=== PATIENT | male | born 1990 | race Caucasian/White ===

== ENCOUNTER 2017-02-12 12:26 | Emergency (ER) | payer MEDICAID ==
[2017-02-12 12:34] VITALS: BP 118/90; PULSE 104; RESP 16; TEMP 98.4; O2SAT 98
== END 2017-02-12 13:21 | disposition left against medical advice (07) ==
DX: Z53.21 Procedure and treatment not carried out due to patient leaving prior to being seen by health care provider (principal)

== ENCOUNTER 2017-07-20 18:56 | Emergency (ER) | payer MEDICAID ==
[2017-07-20 19:31] VITALS: O2SAT 96
[2017-07-20] MEDS ORDERED: FLUORESCEIN SODIUM 1 MG STRIP OP ONE ×2 (19:52→19:53)
[2017-07-20] MEDS ORDERED: PROPARACAINE 0.5% 15 ML OPHT DROP ONE (19:52)
[2017-07-20] MEDS ORDERED: PROPARACAINE 0.5% 15 ML OPHT DROP LEFTEYE ONE (19:53)
[2017-07-20] MEDS ORDERED: GENTAMICIN 0.3% DROPS PREPACK OPHT.BTL TAKEHOME ONE (20:11)
--- NOTE | 2017-07-20 20:11 | EDPHY ---
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 It gradually began to tear in become mildly reddened. He denies any visual changes/photophobia/ocular discharge. Patient does not wear contact lenses. Modifying Factors: None Comment: ROS: see HPI Constitutional: No fever, no chills, no weight loss Eyes: No blurred vision Respiratory: No shortness of breath, no cough Cardiovascular: No chest pain, no palpitations Gastrointestinal: No nausea, no vomiting, no diarrhea, no hematemesis, no blood in stool Genitourinary: No dysuria, no blood in urine Extremities: No myalgias, no edema Neurologic: No weakness, no numbness Skin: No rashes, no petechiae Hematologic: No bruising, no bleeding MEDICAL/SURGICAL/SOCIAL HISTORY: Medical history: Depression, methamphetamine use. Surgical history: Denies Social history: Unemployed General: Untidy, adult white male, nontoxic in appearance, awake and alert, distress Visual Acuity: noted from Nurse's notes. Pupils: equal round and reactive to light. EOMI. Lids: no edema or swelling Skin: no proptosis, no periorbital erythema or swelling, no vesicles Conjunctivae: not injected, no discharge Cornea: exam with fluorescein shows 6 o'clock uptake consistent with abrasion Anterior chamber: normal, no hyphema or hypopyon Source: Patient Exam Limitations: No limitations - Personal History Current Tetanus/Diphtheria Vaccine: Yes Current Tetanus Diphtheria and Acellular Pertussis (TDAP): Yes - Medical/Surgical History Hx Asthma: No Hx Chronic Respiratory Disease: No Hx Diabetes: No Hx Cardiac Disease: No Hx Renal Disease: No Hx Cirrhosis: No Hx Alcoholism: No Hx HIV/AIDS: No Hx Splenectomy or Spleen Trauma: No Other PMH: depression - Social History Smoking Status: Current every day smoker Constitutional: Initial Vital Signs Temperature (C) 37.1 C 07/20/17 19:27 Heart Rate 118 H 07/20/17 19:27 Respiratory Rate 18 07/20/17 19:27 Blood Pressure 140/62 H 07/20/17 19:27 O2 Sat (%) 96 07/20/17 19:27 O2 Delivery Mode Room Air Allergies/Adverse Reactions: No Known Allergies Allergy (Verified 04/01/13 11:48) Home Medications: Medication Instructions Recorded Clonidine 07/20/17 Zoloft 50mg (*) 07/20/17 Medical Decision Making ED Course/Re-evaluation: Exam is consistent with corneal abrasion; gentamicin drops placed in the ER and prescription given to take home No foreign body identified. This patient was seen under the supervision of my secondary supervising physician. I evaluated care for this patient independently. Differential Diagnosis: Differential diagnosis includes but is not limited to conjunctivitis, corneal abrasion, uveitis, iritis. - Data Points Medications Given: Discontinued Medications Fluorescein Sodium ([id number]) 1 mg OP EDNOW ONE Stop: 07/20/17 19:54 Last Admin: 07/20/17 20:20 Dose: Not Given Gentamicin Sulfate (Gentak 0.3% Opht Drops Prepack) 1 btl TAKEHOME EDNOW ONE Stop: 07/20/17 20:12 Last Admin: 07/20/17 20:20 Dose: 1 btl Proparacaine HCl (Alcaine 0.5%) 1 drops LEFTEYE ONCE ONE Stop: 07/20/17 19:54 Last Admin: 07/20/17 20:19 Dose: Not Given Departure - Departure Disposition: Home, Routine, Self-Care Clinical Impression: Corneal abrasion, left Qualifiers: Encounter type: initial encounter Qualified Code(s): S05.02XA - Injury of conjunctiva and corneal abrasion without foreign body, left eye, initial encounter Condition: Good Instructions: Gentamicin (Into the eye), Corneal Abrasion (ED) Additional Instructions: Please do not wear contact lenses or rub your eyes. Use gentamicin eye drops every 6 hr while awake for the next 5-7 days. If the symptoms do not improve over the next 48-72 hours or worsen, follow up with Ophthalmology. Referrals: Kimberli Kohler MD [Non Staff Provider (MD)] - As per Instructions
[2017-07-20 20:40] VITALS: BP 134/74; PULSE 84; RESP 16; TEMP 97.9
== END 2017-07-20 20:24 | disposition home or self-care (01) ==
DX: S05.02XA Injury of conjunctiva and corneal abrasion without foreign body, left eye, initial encounter (principal); F17.200 Nicotine dependence, unspecified, uncomplicated; X58.XXXA Exposure to other specified factors, initial encounter

== ENCOUNTER 2017-07-21 06:58 | Emergency (ER) | payer MEDICAID ==
--- NOTE | 2017-07-21 07:33 | EDPHY ---
H & P Stated Complaint: SI, manic, generalised pain, left eye redness. Time Seen by Provider: 07/21/17 07:08 HPI/ROS: CHIEF COMPLAINT: Lost prescription, SI HISTORY OF PRESENT ILLNESS: The patient is a 27 y/o male with a history of depression and methamphetamine use who returns to the ED for the 2nd time in 12 hours now stating he has lost his prescription, that he's unhappy with his social situation, and says he's had intermittent suicidal thoughts for months. He was seen here last night for a corneal abrasion and prescribed gentamicin. He denies new eye or vision symptoms including fever and drainage or crusting from his eye. He reports prior admissions for depression and suicidality, but is not able to clarify if he currently feels acutely suicidal. He says, "there' s not like a set plan or anything, they've just been there for a while" when describing his suicidal thoughts. He denies self-harm, recent alcohol use, or homicidal ideation. He has used "weed and speed" in the last 24-48 hours. He is not currently on medications for depression because "I was thinking I was okay. " He was most recently on Zoloft and Clonidine, but it sounds like he lost these prescriptions. He's had rhinorrhea and congestion "for a while now." No cough, vomiting, diarrhea, abdominal pain, dyspnea, chest pain. REVIEW OF SYSTEMS: Constitutional: No fever, no chills Eyes: See HPI ENT: see HPI Respiratory: No cough, no shortness of breath Cardiac: No chest pain Gastrointestinal: No nausea, no vomiting, no abdominal pain Genitourinary: No hematuria, no dysuria Musculoskeletal: No leg pain or swelling Skin: No rash Neurological: No headache, no numbness, no weakness Psychiatric: see HPI - Personal History Current Tetanus Diphtheria and Acellular Pertussis (TDAP): Yes - Medical/Surgical History PMH: PMH includes: 1. Depression 2. Methamphetamine abuse 3. Multiple abscesses Prior medial records reviewed including ED visit yesterday 07/20/17 for corneal abrasion and multiple ED visits in 2012 for abscesses. Hx Asthma: No Hx Chronic Respiratory Disease: No Hx Diabetes: No Hx Cardiac Disease: No Hx Renal Disease: No Hx Cirrhosis: No Hx Alcoholism: No Hx HIV/AIDS: No Hx Splenectomy or Spleen Trauma: No Other PMH: depression - Social History Smoking Status: Current every day smoker Additional Social History: Lives between mom's house, friends' house, and the street. "weed and speed" last 24-48 hours. Unemployed. Daily smoker. - Physical Exam Exam: General Appearance: Alert, no distress Eyes: Pupils equal and round, left conjunctival erythema, no drainage ENT, Mouth: Mucous membranes moist Neck: Normal inspection Respiratory: Lungs are clear to auscultation Cardiovascular: Regular rate and rhythm Gastrointestinal: Abdomen is soft and non- tender Neurological: A&O, nonfocal, normal gait Skin: Warm and dry, no rash Extremities: Nontender, no pedal edema Psychiatric: Mood and affect normal Constitutional: Initial Vital Signs Temperature (C) 36.7 C 07/21/17 07:01 Heart Rate 89 07/21/17 07:01 Respiratory Rate 16 07/21/17 07:01 Blood Pressure 138/68 H 07/21/17 07:01 O2 Sat (%) 98 07/21/17 07:01 O2 Delivery Mode Room Air Allergies/Adverse Reactions: No Known Allergies Allergy (Verified 04/01/13 11:48) Home Medications: Medication Instructions Recorded Clonidine 07/20/17 Zoloft 50mg (*) 07/20/17 Gentamicin 0.3% [Gentak 0.3% Opht 2 drop OP TID #1 bottle 07/21/17 Drops (RX)] Medical Decision Making ED Course/Re-evaluation: This is a 27 y/o male who returns for the second time in 12 hours now stating he 's had intermittent suicidal thoughts for months. He denies acute plan to harm himself and is not able to confirm he is acutely suicidal. He says he's unhappy with his social situation and it sounds like he or the people he was staying with were recently evicted leaving him on the street, which may have prompted his visit here. He does not meet criteria for an M1 hold and is here voluntarily requesting a psychiatric evaluation. Plan for standard psychiatric labs then mental health evaluation. This patient was seen by mental health and felt appropriate for outpatient treatment of depression. He is not acutely suicidal or homicidal and he contracts for safety. I agree with this assessment and plan. - Data Points Laboratory Results: Laboratory Results 07/21/17 07:35 02/08/18 07:35 07/21/17 07/21/17 07/21/17 07:40 07:35 07:35 WBC 10.62 10^3/uL H 10^3/uL (3.80-9.50) RBC 4.97 10^6/uL 10^6/uL (4.40-6.38) Hgb 15.7 g/dL g/dL (13.7-17.5) Hct 44.5 % % (40.0-51.0) MCV 89.5 fL fL (81.5-99.8) MCH 31.6 pg pg (27.9-34.1) MCHC 35.3 g/dL g/dL (32.4-36.7) RDW 12.9 % % (11.5-15.2) Plt Count 366 10^3/uL 10^3/uL (150-400) MPV 7.9 fL L fL (8.7-11.7) Neut % (Auto) 71.1 % % (39.3-74.2) Lymph % (Auto) 12.1 % L % (15.0-45.0) [place] % (Auto) 15.4 % H % (4.5-13.0) Eos % (Auto) 0.3 % L % (0.6-7.6) Baso % (Auto) 0.7 % % (0.3-1.7) Nucleat RBC Rel Count 0.0 % % (0.0-0.2) Absolute Neuts (auto) 7.56 10^3/uL H 10^3/uL (1.70-6.50) Absolute Lymphs (auto) 1.28 10^3/uL 10^3/uL (1.00-3.00) Absolute Monos (auto) 1.64 10^3/uL H 10^3/uL (0.30-0.80) Absolute Eos (auto) 0.03 10^3/uL 10^3/uL (0.03-0.40) Absolute Basos (auto) 0.07 10^3/uL 10^3/uL (0.02-0.10) Absolute Nucleated RBC 0.00 10^3/uL 10^3/uL (0-0.01) Immature Gran % 0.4 % % (0.0-1.1) Immature Gran # 0.04 10^3/uL 10^3/uL (0.00-0.10) Sodium 136 mEq/L mEq/L (135-145) Potassium 3.8 mEq/L mEq/L (3.5-5.2) Chloride 99 mEq/L mEq/L (97-110) Carbon Dioxide 27 mEq/l mEq/l (22-31) Anion Gap 10 mEq/L mEq/L (8-16) BUN 18 mg/dL mg/dL (7-23) Creatinine 0.8 mg/dL mg/dL (0.7-1.3) Estimated GFR > 60 Glucose 106 mg/dL H mg/dL (70-100) Calcium 9.8 mg/dL mg/dL (8.5-10.4) Urine Opiates Screen NEGATIVE (NEGATIVE) Urine Barbiturates NEGATIVE (NEGATIVE) Ur Phencyclidine Scrn NEGATIVE (NEGATIVE) Ur Amphetamine Screen NEGATIVE (NEGATIVE) U Benzodiazepines Scrn NEGATIVE (NEGATIVE) Urine Cocaine Screen NEGATIVE (NEGATIVE) U Marijuana (THC) Screen NEGATIVE (NEGATIVE) Ethyl Alcohol < 10 mg/dL mg/dL (0-10) Departure - Departure Disposition: Home, Routine, Self-Care Clinical Impression: Suicidal ideation Corneal abrasion Qualifiers: Encounter type: subsequent encounter Laterality: left Qualified Code(s): S05.02XD - Injury of conjunctiva and corneal abrasion without foreign body, left eye, subsequent encounter Condition: Good Instructions: Suicide Prevention for Adults (ED), Corneal Abrasion (ED) Additional Instructions: Follow-up with mental health as suggested. Take the antibiotic as prescribed. Referrals: [facility] [Outside] - As per Instructions Prescriptions: Gentamicin 0.3% [Gentak 0.3% Opht Drops (RX)] 2 drop OP TID #1 bottle Report Scribed for: Marilyn Edmonds Report Scribed by: Sabrina Ramirez Date of Report: 07/21/17 Time of Report: 07:13 Physician Review and Approval Statement: 07/21/17 07:13 Portions of this note were transcribed by a medical parasitologist. I personally performed a history, physical exam, medical decision making, and confirmed accuracy of information the transcribed note.
[2017-07-21 07:42] LABS: PLATELET COUNT 366 10^3/uL (150-400)
[2017-07-21 13:07] VITALS: BP 134/85; PULSE 90; RESP 15; TEMP 97.6; O2SAT 99
== END 2017-07-21 13:03 | disposition home or self-care (01) ==
DX: R45.851 Suicidal ideations (principal); S05.02XD Injury of conjunctiva and corneal abrasion without foreign body, left eye, subsequent encounter; F17.200 Nicotine dependence, unspecified, uncomplicated; X58.XXXD Exposure to other specified factors, subsequent encounter
CPT/HCPCS: 80305; G0480

== ENCOUNTER 2017-10-17 11:54 | Emergency (ER) | payer MEDICAID ==
--- NOTE | 2017-10-17 12:48 | EDPHY ---
H & P Stated Complaint: Bright red stool for several weeks Time Seen by Provider: 10/17/17 12:48 HPI/ROS: HPI: This is a 27-year-old male who presents with Chief Complaint: Bright red stool for several weeks Location:rectal Quality: bleeding Duration: Several weeks Signs and Symptoms: no fever, no nausea, no vomiting, no hematemesis, + blood in stool, no abdominal bloating, no diarrhea, no back pain, no urinary symptoms , no testicular/groin pain, no indigestion, no chest pain, no shortness of breath Timin-3 times per week Severity: Mild Context: Patient presents with complaints of noticing blood tinged stool on his toilet paper when he wipes 2-3 times per week. He reports that he does strain to have a bowel movement does not have a bowel movement daily. He denies regular NSAID use. He does drink alcohol. Denies hematemesis/abdominal pain/nausea/vomiting/urinary symptoms. He reports that he is eating and drinking normally and without any difficulty. Is not sure whether not he has hemorrhoids. Patient is a transient and does not have a primary care provider. Denies any rectal intercourse or trauma. Modifying Factors: None Comment: ROS: see HPI Constitutional: No fever, no chills, no weight loss Eyes: No blurred vision Respiratory: No shortness of breath, no cough Cardiovascular: No chest pain, no palpitations Gastrointestinal: No nausea, no vomiting, no diarrhea, no hematemesis, no blood in stool Genitourinary: No dysuria, no blood in urine Extremities: No myalgias, no edema Neurologic: No weakness, no numbness Skin: No rashes, no petechiae Hematologic: No bruising, no bleeding MEDICAL/SURGICAL/SOCIAL HISTORY: Medical history: Depression Surgical history: Denies Social history: Transient. Family history noncontributory. CONSTITUTIONAL: Untidy, malodorous, young adult white male, awake and alert, no obvious distress HEENT: Atraumatic and normocephalic, PERRL, EOMI. Nares patent; no rhinorrhea; no nasal mucosal edema. Tympanic membranes clear. Oropharynx clear, no exudate and moist pink mucosa. Airway patent. No lymphadenopathy. No meningismus. Cardiovascular: Normal S1/S2, regular rate, regular rhythm, without murmur rub or gallop. PULMONARY/CHEST: Symmetrical and nontender. Clear to auscultation bilaterally. Good air movement. No accessory muscle usage. ABDOMEN: Soft, nondistended, nontender, no rebound, no guarding, no peritoneal signs, no masses or organomegaly. No CVAT. RECTAL: Good sphincter tone, light brown stool in vault, no external hemorrhoids , no fissures, no palpable masses, guaiac negative EXTREMITIES: 2/2 pulses, strength 5/5, no deformities, no clubbing, no cyanosis or edema. NEUROLOGICAL: no focal neuro deficits. GCS 15. SKIN: Warm and dry, no erythema. no rash. Good capillary refill. Source: Patient Exam Limitations: No limitations - Personal History Current Tetanus Diphtheria and Acellular Pertussis (TDAP): Yes - Medical/Surgical History Hx Asthma: No Hx Chronic Respiratory Disease: No Hx Diabetes: No Hx Cardiac Disease: No Hx Renal Disease: No Hx Cirrhosis: No Hx Alcoholism: No Hx HIV/AIDS: No Hx Splenectomy or Spleen Trauma: No Other PMH: depression - Social History Smoking Status: Current every day smoker Constitutional: Initial Vital Signs Temperature (C) 36.7 C 10/17/17 12:00 Heart Rate 84 10/17/17 12:00 Respiratory Rate 16 10/17/17 12:00 Blood Pressure 117/72 10/17/17 12:00 O2 Sat (%) 96 10/17/17 12:00 O2 Delivery Mode Room Air Allergies/Adverse Reactions: No Known Allergies Allergy (Verified 04/01/13 11:48) Home Medications: Medication Instructions Recorded Polyethylene Glycol 3350 [Miralax 17 gm PO DAILY PRN #1 btl 10/17/17 17 gm (*)] Medical Decision Making - Diagnostics Imaging Results: Imaging Impressions Abdomen X-Ray 10/17/17 13:04 Impression: No localizing features within the abdomen. ED Course/Re-evaluation: Labs, occult stool, abdominal x-ray ordered Vital signs reviewed upon arrival in stable. Abdomen is soft and nontender. Doubt surgical process. Guaiac negative Abdominal x-ray my read shows moderate stool burden especially in rectal vault. No signs of thrombosed hemorrhoids/leukocytosis/anemia/RANDI/electrolyte imbalance. Mildly elevated LFTs noted. No indication to ultrasound at this time. Advised MiraLax daily, push fluids, do not strain during defecation. Establish primary care with [facility] with repeat LFT levels in 6-8 weeks. Avoid Tylenol/alcohol use. This patient was seen under the supervision of my secondary supervising physician. I evaluated care for this patient independently. Differential Diagnosis: Differential diagnosis includes but is not limited to hemorrhoids, diverticulitis, anal fissure, upper GI bleeding, constipation. - Data Points Laboratory Results: Laboratory Results 10/17/17 13:05 10/17/17 13:05 10/17/17 10/17/17 10/17/17 13:05 13:05 13:00 WBC 7.84 10^3/uL 10^3/uL (3.80-9.50) RBC 4.42 10^6/uL 10^6/uL (4.40-6.38) Hgb 13.1 g/dL L g/dL (13.7-17.5) Hct 39.1 % L % (40.0-51.0) MCV 88.5 fL fL (81.5-99.8) MCH 29.6 pg pg (27.9-34.1) MCHC 33.5 g/dL g/dL (32.4-36.7) RDW 12.8 % % (11.5-15.2) Plt Count 300 10^3/uL 10^3/uL (150-400) MPV 8.1 fL L fL (8.7-11.7) Neut % (Auto) 51.1 % % (39.3-74.2) Lymph % (Auto) 28.2 % % (15.0-45.0) Cloud % (Auto) 17.7 % H % (4.5-13.0) Eos % (Auto) 1.7 % % (0.6-7.6) Baso % (Auto) 0.8 % % (0.3-1.7) Nucleat RBC Rel Count 0.0 % % (0.0-0.2) Absolute Neuts (auto) 4.01 10^3/uL 10^3/uL (1.70-6.50) Absolute Lymphs (auto) 2.21 10^3/uL 10^3/uL (1.00-3.00) Absolute Monos (auto) 1.39 10^3/uL H 10^3/uL (0.30-0.80) Absolute Eos (auto) 0.13 10^3/uL 10^3/uL (0.03-0.40) Absolute Basos (auto) 0.06 10^3/uL 10^3/uL (0.02-0.10) Absolute Nucleated RBC 0.00 10^3/uL 10^3/uL (0-0.01) Immature Gran % 0.5 % % (0.0-1.1) Immature Gran # 0.04 10^3/uL 10^3/uL (0.00-0.10) Sodium 140 mEq/L mEq/L (135-145) Potassium 4.1 mEq/L mEq/L (3.5-5.2) Chloride 107 mEq/L mEq/L (97-110) Carbon Dioxide 24 mEq/l mEq/l (22-31) Anion Gap 9 mEq/L mEq/L (8-16) BUN 12 mg/dL mg/dL (7-23) Creatinine 0.8 mg/dL mg/dL (0.7-1.3) Estimated GFR > 60 Glucose 106 mg/dL H mg/dL (70-100) Calcium 8.3 mg/dL L mg/dL (8.5-10.4) Total Bilirubin 0.4 mg/dL mg/dL (0.1-1.4) AST 77 IU/L H IU/L (17-59) ALT 127 IU/L H IU/L (21-72) Alkaline Phosphatase 132 IU/L H IU/L (38-126) Total Protein 6.0 g/dL L g/dL (6.3-8.2) Albumin 3.1 g/dL L g/dL (3.5-5.0) Stool Occult Bld Scrn NEGATIVE (NEGATIVE) Departure - Departure Disposition: Home, Routine, Self-Care Clinical Impression: Liver enzyme elevation Constipation Qualifiers: Constipation type: other constipation type Qualified Code(s): K59.09 - Other constipation Condition: Good Instructions: Constipation (ED), High Fiber Diet (ED) Additional Instructions: Establish primary care with [facility] with repeat LFT levels in 6-8 weeks. Avoid Tylenol/alcohol use. Consume a minimum of 8-10 glasses of water or electrolyte fluid replacement drinks that include Gatorade, Powerade, Pedialyte. Eat a bland diet for the next 48 hours and then slowly advance as tolerated. Take MiraLax daily x 3 days and daily as needed for constipation. Do not strain to have a bowel movement. Return to the ER immediately if you experience new, continued or worsening abdominal pain, fevers/chills, inability to tolerate oral intake, new pain, or any other symptoms that concern you. Referrals: [facility],. [Clinic] - As per Instructions Prescriptions: Polyethylene Glycol 3350 [Miralax 17 gm (*)] 17 gm PO DAILY PRN #1 btl PRN Reason: Constipation
[2017-10-17 13:16] LABS: PLATELET COUNT 300 10^3/uL (150-400)
[2017-10-17 13:44] VITALS: BP 125/72
== END 2017-10-17 13:44 | disposition home or self-care (01) ==
DX: K59.09 Other constipation (principal); R94.5 Abnormal results of liver function studies; F17.200 Nicotine dependence, unspecified, uncomplicated

== ENCOUNTER 2017-11-26 23:30 | Emergency (ER) | payer MEDICAID ==
[2017-11-26 23:40] VITALS: BP 117/63
--- NOTE | 2017-11-26 23:42 | EDPHY ---
H & P Stated Complaint: L shoulder pain, not sure if "slept on it wrong" Time Seen by Provider: 11/26/17 23:42 HPI/ROS: HPI CHIEF COMPLAINT: [ ] HISTORY OF PRESENT ILLNESS: [Need 4: Location, Duration, Severity, Quality, Context, Timing Modifying Factors, Associated S&S] Past Medical History: Past Surgical History: Social History: Family History: ROS REVIEW OF SYSTEMS: A comprehensive 10 point review of systems is otherwise negative aside from elements mentioned in the history of present illness. Exam Constitutional triage nursing summary reviewed, vital signs reviewed, awake/ alert. Eyes normal conjunctivae and sclera, EOMI, PERRLA. HENT normal inspection, atraumatic, moist mucus membranes, no epistaxis, neck supple/ no meningismus, no raccoon eyes. Respiratory clear to auscultation bilaterally, normal breath sounds, no respiratory distress, no wheezing. Cardiovascular rate normal, regular rhythm, no murmur, no edema, distal pulses normal. Gastrointestinal soft, non-tender, no rebound, no guarding, normal bowel sounds, no distension, no pulsatile mass. Genitourinary no CVA tenderness. Musculoskeletal no midline vertebral tenderness, full range of motion, no calf swelling, no tenderness of extremities, no meningismus, good pulses, neurovascularly intact. Skin pink, warm, & dry, no rash, skin atraumatic. Neurologic awake, alert and oriented x 3, AAOx3, moves all 4 extremities equally, motor intact, sensory intact, CN II-XII intact, normal cerebellar, normal vision, normal speech. Psychiatric normal mood/affect. Heme/Lymph/Immune no lymphadenopathy. Differential Diagnosis: Medical Decision Making: Re-evaluation: Source: Patient - Personal History Current Tetanus Diphtheria and Acellular Pertussis (TDAP): No - Medical/Surgical History Hx Asthma: No Hx Chronic Respiratory Disease: No Hx Diabetes: No Hx Cardiac Disease: No Hx Renal Disease: No Hx Cirrhosis: No Hx Alcoholism: No Hx HIV/AIDS: No Hx Splenectomy or Spleen Trauma: No Other PMH: depression - Social History Smoking Status: Heavy smoker Constitutional: Initial Vital Signs Temperature (C) 36.7 C 11/26/17 23:38 Heart Rate 84 11/26/17 23:38 Respiratory Rate 18 11/26/17 23:38 Blood Pressure 117/63 11/26/17 23:38 O2 Sat (%) 97 11/26/17 23:38 O2 Delivery Mode Room Air Allergies/Adverse Reactions: No Known Allergies Allergy (Verified 04/01/13 11:48) Home Medications: Medication Instructions Recorded Polyethylene Glycol 3350 [Miralax 17 gm PO DAILY PRN #1 btl 10/17/17 17 gm (*)] Departure - Departure Referrals: NONE *PRIMARY CARE P,. [Primary Care Provider] - As per Instructions
[2017-11-26] MEDS ORDERED: CYCLOBENZAPRINE 10 MG TAB PO ONE (23:49)
[2017-11-26] MEDS ORDERED: IBUPROFEN 800 MG TAB PO ONE (23:49)
--- NOTE | 2017-11-26 23:53 | EDPHY ---
H & P Stated Complaint: L shoulder pain, not sure if "slept on it wrong" Time Seen by Provider: 11/26/17 23:42 HPI/ROS: CHIEF COMPLAINT: Left shoulder pain x3 days HISTORY OF PRESENT ILLNESS: 27-year-old [id number] male complaining of atraumatic left shoulder pain for the past 3 days. The pain is reproducible with range of motion of the left shoulder. Has not taken any medication including no mcbb-[id number]-[id number] analgesics. It is not associated with dyspnea, chest pain, syncope, near syncope, back pain, facial pain, facial paresthesia, visual acuity changes, facial droop paresthesia, neck pain. No history of manipulation to the neck. No major or minor head or neck trauma. No fever or chills. No malaise. REVIEW OF SYSTEMS: A ten point review of systems was performed and is negative with the exception of the items mentioned in the HPI PAST MEDICAL & SURGICAL HISTORY: Denies IV drug use history. No recent cocaine use. SOCIAL HISTORY:Daily Smoker PHYSICAL EXAM (Prior to examination, patient consented to physical exam, hands were washed and my usual and customary physical exam procedures followed) 1) GENERAL: Well-developed, well-nourished, alert and oriented. Appears to be in no acute distress. 2) HEAD: Normocephalic, atraumatic 3) HEENT: Pupils equal, round, reactive to light bilaterally. Sclera anicteric. Symmetrical faces. Negative horners. Nasopharynx, oropharynx, clear, no lesions. Ears bilaterally with normal tympanic membranes. 4) NECK: Full range of motion, no meningeal signs. No bruit. 5) LUNGS: Clear auscultation bilaterally, no wheezes, no rhonchi, no retractions. 6) HEART: Regular rate and rhythm, no murmur, no heave, no gallop. 7) ABDOMEN: No guarding, no rebound, no focal tenderness, negative McBurney's, negative Hood's, negative Rovsing's, negative peritoneal sign, 8) MUSCULOSKELETAL: Tender to palpation anterior shoulder. Pain is reproducible with range of motion. Shoulder has normal color normal temperature. No effusion. 9) BACK: Scapula nontender. No obvious trauma, no visual or palpable abnormality. 10) SKIN: No rash, no petechiae. 11) Psychiatric: Patient is oriented X 3, there is no agitation. DIFFERENTIAL DIAGNOSIS: In no particular include but limited to shoulder sprain, strain, dislocation, cardiac etiology, pulmonary etiology, septic arthritis - Personal History Current Tetanus Diphtheria and Acellular Pertussis (TDAP): No - Medical/Surgical History Hx Asthma: No Hx Chronic Respiratory Disease: No Hx Diabetes: No Hx Cardiac Disease: No Hx Renal Disease: No Hx Cirrhosis: No Hx Alcoholism: No Hx HIV/AIDS: No Hx Splenectomy or Spleen Trauma: No Other PMH: depression - Social History Smoking Status: Heavy smoker Constitutional: Initial Vital Signs Temperature (C) 36.7 C 11/26/17 23:38 Heart Rate 84 11/26/17 23:38 Respiratory Rate 18 11/26/17 23:38 Blood Pressure 117/63 11/26/17 23:38 O2 Sat (%) 97 11/26/17 23:38 O2 Delivery Mode Room Air Allergies/Adverse Reactions: No Known Allergies Allergy (Verified 04/01/13 11:48) Home Medications: Medication Instructions Recorded Polyethylene Glycol 3350 [Miralax 17 gm PO DAILY PRN #1 btl 10/17/17 17 gm (*)] Cyclobenzaprine [Flexeril 10 MG 10 mg PO TID #7 tab 11/26/17 (RX)] Ibuprofen [Motrin (*)] 600 mg PO Q6 #15 tab 11/26/17 Medical Decision Making ED Course/Re-evaluation: 11:52 p.m.: I think the patient's symptoms are less than likely secondary to cardiac or pulmonary etiology such as ND, aortic dissection, PE, pulmonary infectious etiology. Doubt abdominal pathology with radiation of pain.. Doubt septic arthritis. He has reproducible anterior shoulder pain with range of motion, reproducible range of motion, reproducible with palpation. Normal coloration temperature, afebrile, no history of IV drug use, no malaise or flu- like symptoms. No history of trauma. I do not think that plain film imaging indicated at this time and absence of trauma. I do not think that emergent MRI is indicated although this may be indicated on outpatient basis. I recommended ibuprofen, Flexeril and close follow up with Orthopedics. Definitely if he develops worsening symptoms needs to return to the ER. Definitely if he develops fevers, chills, chest pain, dyspnea, back pain needs to return to the ER for evaluation. He feels comfortable being discharged. All questions and concerns addressed by myself. I saw this patient independently based on established practice protocols. Care of patient under supervision of secondary supervising physician Dr Potts . - Data Points Medications Given: Discontinued Medications Cyclobenzaprine HCl (Flexeril) 10 mg PO EDNOW ONE Stop: 11/26/17 23:50 Last Admin: 11/26/17 23:52 Dose: 10 mg Ibuprofen (Motrin) 800 mg PO EDNOW ONE Stop: 11/26/17 23:50 Last Admin: 11/26/17 23:52 Dose: 800 mg Departure - Departure Disposition: Home, Routine, Self-Care Clinical Impression: Left anterior shoulder pain Condition: Good Instructions: Shoulder Sprain (ED) Additional Instructions: Return to the emergency department immediately if you develop chest pain shortness of breath, or any other symptoms that concern you Referrals: Jeovany Morillo MD [Medical Doctor] - 2-3 days without fail Prescriptions: Cyclobenzaprine [Flexeril 10 MG (RX)] 10 mg PO TID #7 tab Ibuprofen [Motrin (*)] 600 mg PO Q6 #15 tab
== END 2017-11-27 00:02 | disposition home or self-care (01) ==
DX: M25.512 Pain in left shoulder (principal); F17.200 Nicotine dependence, unspecified, uncomplicated

== ENCOUNTER 2017-12-13 22:42 | Emergency (ER) | payer MEDICAID ==
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
[2017-12-13] MEDS ORDERED: CYCLOBENZAPRINE 10 MG TAB PO ONE (22:59)
[2017-12-13] MEDS ORDERED: IBUPROFEN 800 MG TAB PO ONE (22:59)
[2017-12-14] VITALS: BP 143/92
== END 2017-12-13 23:58 | disposition home or self-care (01) ==
DX: S46.812A Strain of other muscles, fascia and tendons at shoulder and upper arm level, left arm, initial encounter (principal); S43.402A Unspecified sprain of left shoulder joint, initial encounter; F17.200 Nicotine dependence, unspecified, uncomplicated; Y04.8XXA Assault by other bodily force, initial encounter; Y92.143 Cell of prison as the place of occurrence of the external cause; Y99.8 Other external cause status; Y93.89 Activity, other specified
CPT/HCPCS: A4565

== ENCOUNTER 2018-04-20 07:02 | Emergency (ER) | payer MEDICAID ==
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
[2018-04-20 09:54] VITALS: BP 140/89
--- NOTE | 2018-04-20 18:34 | ASMTCMCOM ---
CM Note CM Note Notes: Provided patient with a pair of pants, socks, and boots. Pt provided a cab voucher to [facility] per pt's request. Pt provided various other homelessness resources and other substance abuse treatment options. PT is already an open client w/[facility]. Pt states he completed [facility] and was referred to [facility] Home but then was later referred to the [facility] but "now I can't stay anywhere." PT encouraged to follow up with [facility], [facility] or [facility] to see what steps he would need to take in order to be reconsidered for staying at either custodial. Pt aware of [facility] being offered tonight; info provided. CM available for further assistance if needed. Date Signed: 04/20/2018 06:33 PM Electronically Signed By:Dalia Winn RN
== END 2018-04-20 10:01 | disposition home or self-care (01) ==
DX: F15.10 Other stimulant abuse, uncomplicated (principal); F31.9 Bipolar disorder, unspecified

== ENCOUNTER 2018-09-27 21:11 | Emergency (ER) | payer MEDICAID ==
[2018-09-27] MEDS ORDERED: AZITHROMYCIN 250 MG TAB PO ONE (21:41)
--- NOTE | 2018-09-27 21:42 | EDPHY ---
H & P Time Seen by Provider: 09/27/18 21:33 HPI/ROS: CHIEF COMPLAINT: Penile discharge HISTORY OF PRESENT ILLNESS: Recent new unprotected sexual intercourse partner 1 week ago, presents with 24 hr of pain burning with urination and urethral discharge. REVIEW OF SYSTEMS: No fever or chills, no testicular symptoms, no abdominal pain PAST MEDICAL HISTORY: Depression, methamphetamine Social history: See HPI General Appearance: Alert and conversant, cooperative. Normal scrotum, no sores on the penis or the perineum. Yellow purulent drainage from the urethral meatus. Emergency Department course/MDM: GC and chlamydia swab sent. Empiric treatment for STD with ceftriaxone and azithromycin. Warned he needs to notify [facility], use absence or barrier contraception until symptoms resolved. Smoking Status: Heavy smoker Constitutional: Initial Vital Signs Temperature (C) 36.7 C 09/27/18 21:13 Heart Rate 94 09/27/18 21:13 Respiratory Rate 16 09/27/18 21:13 Blood Pressure 131/85 H 09/27/18 21:13 O2 Sat (%) 98 09/27/18 21:13 O2 Delivery Mode Room Air Allergies/Adverse Reactions: No Known Allergies Allergy (Verified 09/27/18 21:15) Home Medications: Medication Instructions Recorded NK [No Known Home Meds] 09/27/18 MDM/Departure - MDM Medications Given: Discontinued Medications Azithromycin (Zithromax) 1,000 mg PO EDNOW ONE PRN Reason: Protocol Stop: 09/27/18 21:42 Last Admin: 09/27/18 21:58 Dose: 1,000 mg Ceftriaxone Sodium (Rocephin Im Syringe) 250 mg IM ONCE ONE PRN Reason: Protocol Stop: 09/27/18 21:42 Last Admin: 09/27/18 22:26 Dose: 250 mg - Depart Disposition: Home, Routine, Self-Care Clinical Impression: Urethritis Condition: Good Instructions: Azithromycin (By mouth), Ceftriaxone (By injection) Additional Instructions: STD testing results will be available in 24-48 hours. Call [phone]. you received ceftriaxone and azithromycin today for possible gonorrhea or chlamydia. Notify any sexual partner so they can be tested. Referrals: [facility],. [Clinic] - As per Instructions
[2018-09-27 22:01] VITALS: BP 130/80
[2018-09-28 12:12] LABS: GC AMPLIFICATION GENPROBE POSITIVE (NEGATIVE)
== END 2018-09-27 22:37 | disposition home or self-care (01) ==
DX: N34.2 Other urethritis (principal)
CPT/HCPCS: J0696